=== PATIENT | female | born 1945 | race Caucasian/White ===

== ENCOUNTER 2023-08-24 09:59 | Outpatient (REF) | payer MEDICARE, OTHER, SELFPAY ==
--- NOTE | ~2023-08-24 | XR_ITS ---
EXAMINATION: XR SHOULDER, RIGHT CLINICAL INFORMATION: Pain in right shoulder COMPARISON: None available. TECHNIQUE: AP neutral and scapular Y views of the right shoulder. FINDINGS: The bones are diffusely osteopenic. No fracture. Glenohumeral and acromioclavicular alignment is anatomic. There is marked degenerative change of the glenohumeral joint. There is moderate degenerative change of the acromioclavicular joint. There are multiple large calcifications ranging in size from 1.5 to 2.2 cm are seen about the right shoulder joint. XR/XR shoulder RT min 2V IMPRESSION: 1. Marked degenerative change of the glenohumeral joint. 2. Multiple large calcifications ranging in size from 1.5 to 2.2 cm about the right shoulder joint.
== END 2023-08-24 10:00 | disposition home or self-care (01) ==
LOC: HO.HOSX 09:59
PROVIDERS: Visit Provider Orthopaedic Surgery
DX: M25.511 Pain in right shoulder (principal); Z79.899 Other long term (current) drug therapy
CPT/HCPCS: 73030; 99202

== ENCOUNTER 2023-08-24 10:34 | Outpatient (AMB) | payer MEDICARE, OTHER, SELFPAY ==
--- NOTE | 2023-08-24 10:35 | MHC.OFFVIS ---
Intake Vital Signs 08/24/23 11:08 Height 5 ft 5 in Weight 175 lb BMI 29.1 Intake Visit Reasons: [employer]-Right shoulder pain- Intake Note: Talita is a 78 year old Right and dominate female who presents as a new patient with Right shoulder discomfort and stiffness. The patient did have a cortisone injection several months ago which gave her minimal relief. She continues to stretch her shoulder as much as possible to prevent stiffness. She has taken Tylenol which gives her mild relief. Allergies No Known Allergies Allergy (Verified 08/24/23 11:10) Medication List - Last Reconciled 08/24/23 by Braden Dodd MD escitalopram oxalate 20 mg PO DAILY folic acid 2 mg PO DAILY levothyroxine 88 mcg PO QAM losartan 50 mg PO DAILY memantine 10 mg PO BID methotrexate sodium 10 mg PO QWEEK [facility] Surgical History (Updated 08/24/23 @ 11:15 by Alison Ontiveros CMA) History of lumpectomy of left breast Social History (Updated 08/24/23 @ 11:11 by Alison Ontiveros CMA) Patient Tobacco Use Status: Never used Tobacco Current occupational status: retired Current occupation: Right hand dominate Physical Exam Vital Signs: BMI result Body Mass Index 29.1 Const Other: Well-nourished well-developed very friendly female awake alert and oriented x3 in no acute distress Extrem Other: Bilateral upper extremity examination shows good capillary refill, no skin lesions noted, normal sensation light touch Right shoulder examination shows slightly decreased range of motion when compared to her left shoulder, 4+ out of 5 strength with supraspinatus testing, mild crepitus with range of motion, no instability Results Reviewed Results Reviewed: X-rays of the patient's right shoulder show severe glenohumeral joint degenerative changes, osteophyte formation, no acute bony abnormalities Assessment & Plan Assessment & Plan (1) Right shoulder pain: Code(s): M25.511 - Pain in right shoulder Plan Ms. Damon presents with right shoulder pain and stiffness due to glenohumeral joint arthritis. I had a lengthy discussion with the patient regarding the treatment options. At this point the patient's symptoms are tolerable to her. She wishes to hold off on shoulder replacement surgery for as long as possible. I agree with this plan. She will continue with her home stretching program. She will follow up with me on an as-needed basis should her symptoms worsen in any way. Feel free to call me at any time should questions regarding her orthopedic management arise. I spent 22 minutes in reviewing the patient's records and imaging studies, seeing the patient and documenting in the medical record. Orders: Orders XR shoulder RT min 2V Today M25.511 - Pain in right shoulder Coding Level of Care Code New Pt Level 2 (45207) Diagnoses Right shoulder pain M25.511
[2023-08-24 11:08] VITALS: BMI 29.1
== END 2023-08-24 11:24 | disposition home or self-care (01) ==
PROVIDERS: PCP Internal Medicine; Visit Provider Orthopaedic Surgery
DX: M25.511 Pain in right shoulder (principal)
CPT/HCPCS: 99202